=== PATIENT | female | born 1960 | race Caucasian/White ===

== ENCOUNTER → 2018-03-29 14:03 | Outpatient (CLI) | payer OTHER, SELFPAY ==
--- NOTE | 2018-03-29 | DI.RAD.S_ITS ---
PROCEDURE: XR WRIST LT MIN 3V INDICATIONS: LEFT WRIST PAIN TECHNIQUE: 4 views of the wrist were acquired. COMPARISON: None. FINDINGS: Bones: No fractures or dislocations. No suspicious bony lesions. Mild joint space narrowing and subchondral sclerosis of the radiocarpal joint. Scaphoid view: Scaphoid is intact. Soft tissues: No suspicious soft tissue calcifications. IMPRESSION: No fracture or dislocation. Mild degenerative joint disease. Dictated by: Sona Martinez M.D. on 03/29/2018 at 22:16 Transcribed by: [email or web address] on 03/29/2018 at 22:17 Approved by: Sona Martinez M.D. on 03/30/2018 at 7:39
== END ==
PROVIDERS: Visit Provider Internal Medicine
DX: M19.032 Primary osteoarthritis, left wrist (principal); M25.532 Pain in left wrist
CPT/HCPCS: 73110

== ENCOUNTER → 2018-04-27 09:34 | Outpatient (CLI) | payer OTHER, SELFPAY ==
--- NOTE | 2018-04-27 | DI.MRI.S_ITS ---
PROCEDURE: MR CERVICAL SPINE WO CON INDICATIONS: ARM NUMBNESS/PARATHESIA TECHNIQUE: Noncontrast sagittal T1 spin echo and T2 fast spin echo, sagittal STIR, foraminal oblique sagittal T2 fast spin echo, and axial gradient echo or T2 fast spin echo through the cervical spine. COMPARISON: None. FINDINGS: Image quality: Diagnostic, with note made of motion artifact. Alignment and Curvature: There is normal bony alignment. Bone Marrow: Marrow demonstrates normal overall signal. Spinal Cord: Visualized spinal cord has normal size and signal. No cerebellar tonsillar herniation. Paraspinous Soft Tissues: No paravertebral masses. Prevertebral soft tissues are normal in thickness. C2-C3: No significant abnormality is seen. C3-C4: Ycbf-[id number]-lkinltex loss of disc height and disc signal are seen. Mild to moderate disc osteophyte complex is seen, which is eccentric to the right. There is moderate right-sided and no significant left-sided neural foraminal narrowing seen. Mild central canal narrowing is seen. C4-C5: Moderate loss of disc height is seen. Loss of disc signal is seen. Moderate disc osteophyte complex is seen, which is eccentric to the left. There is moderate to severe left-sided and moderate right-sided neural foraminal narrowing seen. Mild central canal narrowing is seen. C5-C6: Moderate to severe loss of disc height and disc signal are seen. Moderate disc osteophyte complex is seen, which is eccentric to the right side. Uncovertebral joint hypertrophy is seen at this level. Mild facet joint hypertrophy is seen. Moderate to severe bilateral neural foraminal narrowing is seen, right worse than left. Moderate to severe central canal narrowing seen, as on series 9 image 25. C6-C7: Moderate to severe loss of disc height and disc signal are seen. Moderate to prominent disc osteophyte complex is seen, which is eccentric to the right. There is moderate to severe bilateral neural foraminal narrowing seen. At least moderate central canal narrowing is seen. C7-T1: No significant abnormality is seen at this level. IMPRESSION: Multiple levels of cervical spine degenerative change are seen, which are worst at the C5-C6 and C6-C7 levels. Dictated by: Luis E Angulo M.D. on 04/27/2018 at 9:56 Approved by: Luis E Angulo M.D. on 04/27/2018 at 10:00
== END ==
PROVIDERS: Visit Provider Internal Medicine
DX: M50.322 Other cervical disc degeneration at C5-C6 level (principal); R20.0 Anesthesia of skin
CPT/HCPCS: 72141